=== PATIENT | female | born 1990 | race Caucasian/White ===

== ENCOUNTER 2016-04-09 12:53 | Emergency (ER) | payer BC, OTHER ==
[~2016-04-09] VITALS: Ht 167.6 cm; Wt 95.0 kg
[2016-04-09 12:57] VITALS: Ht 167.6 cm; Wt 95.0 kg
[2016-04-09] MEDS ORDERED: HC1C30 TOP (14:48)
[2016-04-09] MEDS ORDERED: BEN25 PO (14:48)
[2016-04-09] MEDS ORDERED: PRED20TA PO (14:48)
--- NOTE | 2016-04-09 14:56 | ERD ---
ER Documentation Chief Complaint Date/Time DATE: 04/09/16 TIME: 14:50 Chief Complaint RASH ON BILATERIAL ARMS AND BACK STARTED 30 MIN AGO HPI Patient is a 26-year-old female who presents to the emergency department with a rash on her bilateral upper arms and upper back. Patient is a rash started 30 minutes ago. Patient was visiting her daughter here at [facility] when the rash started. She describes the rash to be itching in nature. She states the rash is erythematous. She states that she had ate a piece of bread prior to the rash starting. She denies any fever allergies. Patient denies any new creams, lotions, medications, environments, or pets. Patient denies any shortness of breath, chest pain, lip swelling, throat swelling, throat swelling difficulty breathing, loss of consciousness. ROS All systems reviewed and are negative except as per history of present illness. Medications Home Meds Active Scripts Hydrocortisone* Topical (Hydrocortisone* Topical) 1%-28.35 Gm Cream..g., 1 APPLIC TOP Q6 Y for ITCHING, #1 TUB Prov:SHEILA RUELAS PA-C 04/09/16 Diphenhydramine Hcl* (Benadryl*) 25 Mg Cap, 25 MG PO Q6, #20 CAP Prov:SHEILA RUELAS PA-C 04/09/16 Prednisone* (Prednisone*) 20 Mg Tab, 40 MG PO DAILY for 4 Days, TAB Prov:SHEILA RUELAS PA-C 04/09/16 Allergies Allergies: Coded Allergies: No Known Drug Allergy (Verified Allergy, Unknown, 07/06/11) PMhx/Soc History of Surgery: No Anesthesia Reaction: No Hx Neurological Disorder: No Hx Respiratory Disorders: No Hx Cardiac Disorders: No Hx Psychiatric Problems: No Hx Miscellaneous Medical Probl: No Hx Alcohol Use: No Hx Substance Use: No Hx Tobacco Use: No FmHx Family History: No diabetes Physical Exam Vitals Vital Signs Date Time Temp Pulse Resp B/P Pulse Ox O2 Delivery O2 Flow Rate FiO2 04/09/16 12:57 98.2 60 18 127/61 98 Physical Exam GENERAL: Well-developed, well-nourished female. Appears in no acute distress. Speaking in full sentences HEAD: Normocephalic, atraumatic. No deformities or ecchymosis. EYE: Pupils equal, round, and reactive to light. EOMs intact. No conjunctival erythema. No scleral icterus. No eye discharge. ENT: External ear without any masses or tenderness. Auditory canals clear bilaterally. TM visualized bilaterally, non-erythematous, non-bulging. Nasal mucosa pink with no discharge. Oropharynx is pink without any tonsillar erythema or exudates. No uvula deviation. No kissing tonsils. No lip swelling. No tongue swelling. No tonsillar swelling. NECK: Supple. No lymphadenopathy or thyromegaly. No meningismus. No JVD. No bruits. Trachea midline. LUNG: Clear to auscultation bilaterally. No rhonchi, wheezing, rales or coarse breath sounds. No signs of acute respiratory distress. No abdominal retractions , no nasal flaring. HEART: Regular rate and rhythm. No murmurs, rubs or gallops. BACK: No midline tenderness. EXTREMITIES: Equal pulses bilaterally. No peripheral clubbing, cyanosis or edema. No unilateral leg swelling. NEUROLOGIC: Alert and oriented to person, place and time. Moving all four extremities. 5/5 strength in all extremities. Normal speech. Steady gait. Negative Brudzinski sign. Negative Kernig sign SKIN: Normal color. Warm and dry. Erythematous, urticarial-like rash noted on bilateral upper arms and upper back. No lymphatic streaking. No active bleeding or discharge. Procedures/MDM MEDICAL DECISION MAKING: This is a 26-year-old female who presents with a rash to her bilateral arms and back which started approximately 30 minutes ago. Vital signs were reviewed. Patient was afebrile. She was not hypoxic. No signs of acute respiratory distress. Skin exam revealed erythematous, urticarial-like rash noted on bilateral upper arms and back. Given these findings, the patients presentation is most consistent with urticarial rash secondary to allergic reaction. I have a much lower clinical concern for necrotizing fasciitis, sepsis, gangrene, Jaspreet-Miguel syndrome, toxic epidural necrolysis, abscess, cellulitis, herpes zoster, fungal infection, insect bite, impetigo, dermatitis. Low suspicion for anaphylaxis or acute respiratory distress. PRESCRIPTIONS: Prednisone Benadryl Hydrocortisone cream DISCHARGE: At this time, patient is stable for discharge and outpatient management. I have advised the patient to avoid any new products, creams or possible allergens. I have advised the patient to avoid scratching the lesions. I have instructed the patient to follow-up with his/her primary care physician in 1-2 days. If symptoms persist, patient may need to see a double cut sawyer for further examinations and testing. I have instructed the patient to promptly return to the ER at any time for any new or worsening symptoms including increased pain, fever, redness, swelling of the lips/tongue/throat, warmth, difficulty breathing or vomiting. The patient and/or family expressed understanding of and agreement with this plan. All questions were answered. Home care instructions were provided. Departure Diagnosis: Primary Impression: Rash Condition: Stable Patient Instructions: Self-Care for Skin Rashes, Hives Referrals: FAMILIA BUTT (PCP) Additional Instructions: Call your primary care doctor TOMORROW for an appointment during the next 1-2 days.See the doctor sooner or return here if your condition worsens before your appointment time. Return to the emergency department immediately for any new or worsening symptoms including shortness of breath, chest pain, increasing rash, tongue swelling, lip swelling, difficulty swallowing. SHEILA RUELAS PA-C Apr 09, 2016 14:56
== END 2016-04-09 14:50 | disposition home or self-care (01) ==
LOC: E/R 12:53
DX: R21 Rash and other nonspecific skin eruption (principal)
CPT/HCPCS: 99283

== ENCOUNTER 2017-04-03 21:37 | Outpatient (CLI) | END 2017-04-03 22:55 | disposition home or self-care (01) ==

== ENCOUNTER 2017-07-22 00:45 | Inpatient (IN) | END 2017-07-24 19:35 | disposition home or self-care (01) | DRG 775 ==

== ENCOUNTER 2018-08-31 19:19 | Inpatient (IN) | payer MEDICAID, OTHER ==
[~2018-08-31] VITALS: Ht 166.4 cm; Wt 101.2 kg
[~2018-08-31 19:19] MED LIST: PREN-17 PO
--- NOTE | 2018-08-31 22:03 | HP ---
Date/Time of Note Date/Time of Note DATE: 08/31/18 TIME: 21:51 OB - History Hx of Present Free Text/Dictation Patient is a 28-year-old 6 para 4 who has received partial care and unsure of her due date but based on her last menstrual period December 26, 2017 she should be at 35 weeks and 3 days of gestation with estimated date of delivery October 02, 2018 Although ultrasound done here today puts her at 31 weeks and 2 days of gestation with estimated date of delivery October 31, 2018 She has received some care in [place] which she has been told of 3 different due dates of either August or September or October Patient reports positive movement, denies vaginal bleeding, denies leaking fluid or uterine contractions Past obstetrical history significant for x5 delivery x3 including of demise at 32 weeks of gestation GBS status is unknown Estimated Due Date: Oct 31, 2018 : 6 Para: 4 Care: Limited Care Obstetrical Complications: Other (History of deliveries and history of demise at 32 weeks of gestation) Other Concerns: History of deliveries and history of demise at 32 weeks of gestation OB Admission Exam Physical Exam HEENT: WNL Heart: Rhythm Normal Lungs: Clear, Equal Abdomen: WNL Extremities: Normal Reflexes: Normal Cervical Dilatation: None Membranes: Intact Heart Rate: 140's Accelerations: Accelerations Present Decelerations: No Decelerations Contractions on Admission: None Last 72 hours Lab Results PROCEDURE: US OB biophysical profile. CLINICAL INDICATION: decreased movements, pain TECHNIQUE: Multiple sonographic images of the pelvis were obtained. The images were reviewed on a PACS workstation. COMPARISON: No prior studies are available for comparison. FINDINGS: There is a single live intrauterine gestation. Cardiac activity is present with 144 beats per minute. There is a breech oblique right presentation. The placenta is posterior. There is no evidence of placental abruption. RAY = 10.2 cm. Biophysical profile: movement 2/2 tone 2/2. breathing 2/2 RAY 2/2 Total 10/30 RPTAT: AA . IMPRESSION: Normal biophysical profile. Presentation has changed since the prior study. . .Alec Powell MD, MD Date Time Electronically viewed and signed by .Alec Powell MD, MD on 08/31/2018 21:10 .S/ CC: SIMEON PELLETIER MD [phone] PROCEDURE: US OB. CLINICAL INDICATION: Size and dates TECHNIQUE: Multiple sonographic images of the pelvis and gravid uterus were obtained. The images were reviewed on a PACS workstation. COMPARISON: No prior studies are available for comparison. FINDINGS: Gestation: Single live intrauterine gestation. Cardiac activity: 144 beats per minute. Presentation: Transverse maternal right Placenta: Location: Posterior Appearance: No previa or abruption. Measurements: BPD = 7.8 cm, 31 weeks and 1 day HC = 28.4 cm, 31 weeks and 1 day AC = 27.3 cm, 31 weeks and 3 days FL = 6.0 cm, 31 weeks and 2 days Gestational Age: AUA estimated gestational age: 31 weeks 2 days LMP estimated gestational age: 40 weeks 1 day AUA estimated date of delivery: 10/31/18 The EFW = 1745 g, <3%ile based on LMP age. RPTAT: AA IMPRESSION: Single live intrauterine gestation of 31 weeks 2 days by ultrasound criteria. .Alec Powell MD, MD Date Time Electronically viewed and signed by .Alec Powell MD, MD on 08/31/2018 21:11 .S/ CC: SIMEON PELLETIER MD [phone] OB Assessment/Plan Reason for admission: other (Possible IUGR) Other plan: 31 weeks and 2 days of gestation with estimated weight less than 3 percentile suggestive of IUGR Admit to antepartum We will obtain all records available to determine whether the baby is IUGR- If IUGR is confirmed we will obtain perinatology consultation SIMEON PELLETIER MD Aug 31, 2018 22:02
[2018-08-31] MEDS ORDERED: AL HYDROX/MG HYDROX/SIMETH 30 ML CUP PO PRN (23:30)
[2018-08-31] MEDS ORDERED: ACETAMINOPHEN 325 MG TAB PO PRN (23:30)
--- NOTE | 2018-09-01 02:02 | TRIAGE ---
OB Triage Datetime Report Generated by CPN: 09/01/2018 02:02 Datetime: 08/31/2018 23:36 Stage of : Antepartum Assessment Type: Admission Assessment Maternal Assessment Level of Consciousness: Fully Conscious DTR's/Clonus: DTRs 2+; No Clonus Headache: Denies Blurred Vision: No Respiratory Effort: Unlabored; Regular Rhythm; Equal Expansion Breath Sounds, Left: Clear and Equal Breath Sounds, Right: Clear and Equal Nausea/Vomiting: Denies RUQ Epigastric Pain: Denies Facial Edema: None Temperature Route: Oral Fall Risk Assessment History of Falling: (0) No Secondary Diagnosis: (0) No Ambulatory Aid: (0) Bedrest/Nurse Assist IV Therapy: (0) No Gait: (0) Normal/Bedrest/Immobile Mental Status: (0) Oriented to Own Ability Fall Score: 0 Fall Risk Score Definition: No Risk: No action required Datetime: 08/31/2018 22:38 Time of Arrival: 08/31/2018 22:38 EGA: 40.1 Arrived By: Ambulatory Arrived From: Home Chief Complaint: L4 w/ hx ptd x4 to triage c/o occas ucs and FITZGERALD. States EDC 08/30 but EDC has bee n changed several times through , early PNC at [facility] and care since May in [place]. Stat es worried if baby is ok since postdates and came for IOL Movement: Present Contractions: Occasional Rupture of Membranes: Denies Vaginal Bleeding: None Vaginal Discharge: Denies Recent Sexual Intercouse: Denies Abdominal Trauma: Not Applicable Patient Complaints: Cramping Time Provider Notified: 08/31/2018 19:40 Provider Notified: Dr Varma Initial Plan: EFM,UA,DRUG SCREEN,EFW,BPP Datetime: 08/31/2018 22:10 Stage of : OB Triage Stage of : Antepartum Maternal Assessment Level of Consciousness: Fully Conscious Headache: Temporal Nausea/Vomiting: Denies RUQ Epigastric Pain: Denies Labor Evaluation Monitor Mode: External Resting Tone [place]: Relaxed Heart Rate FHR Baseline Rate: 145 Monitor Mode: External US Pain Assessment Pain Scale: 5 Pain Presence: Intermittent Pain Type: Cramping Pain Location: Abdomen Datetime: 08/31/2018 19:24 Stage of : OB Triage Maternal Assessment Level of Consciousness: Fully Conscious Headache: Temporal Blurred Vision: No Nausea/Vomiting: Denies RUQ Epigastric Pain: Denies Facial Edema: None Labor Evaluation Monitor Mode: External Resting Tone [place]: Relaxed Heart Rate FHR Baseline Rate: 145 Monitor Mode: External US Pain Assessment Pain Scale: 5 Pain Presence: Intermittent Pain Type: Cramping Pain Location: Abdomen
[2018-09-01] MEDS ORDERED: PRENATAL VITAMIN PO SCH (09:00)
--- NOTE | 2018-09-01 14:40 | DS ---
Date/Time of Note Date/Time of Note DATE: 09/01/18 TIME: 14:37 Obstetrical Discharge Record Final Diagnosis Final Diagnosis: not delivered Other Final Diagnosis Patient is 6 para 4 with single viable with gestational age of approximately 31 weeks 0 days based on ultrasound measurements. The estimated date of delivery is 11/03/2018. Baby is measuring in 45th percentile AMENDMENT: 09/01/2018 11:47:02 AM Aaron Woodall M.d Fetus is in 45%ile of weight by ultrasound measurements, within normal limits. PROCEDURE: US OB. CLINICAL INDICATION: Size and dates TECHNIQUE: Multiple sonographic images of the pelvis and gravid uterus were obtained. The images were reviewed on a PACS workstation. COMPARISON: US PELVIS 08/31/2018 FINDINGS: There is a single viable intrauterine gestation. There is a breech presentation. The placenta is posterior. There is no evidence for an abruption or placenta previa. Measurements were made in order to determine age. The results are as follows: BPD = 7.67 cm HC = 28.46 cm AC = 28.01 cm FL = 5.71 cm EFW = 1726 g HR= 146 bpm IMPRESSION: Single viable with gestational age of approximately 31 weeks 0 days based on ultrasound measurements. The estimated date of delivery is 11/03/2018. Stable orientation. RPTAT: [facility] Physician Jabier Date Time Electronically viewed and signed by Physician Jabier on 09/01/2018 14:48 ME/ CC: SIMEON PELLETIER MD [phone] Patient indicated some elevated blood pressures earlier in the She was given instructions for 24-hour urine protein collection Patient was given instructions to return in 48 hours for repeat NST and BPP Condition on Discharge Physical Assessment Voiding: Yes Bowel Movement: Yes Breast: Soft, non-tender Fundus: Other (Gravid) Calf Tenderness: No Patient Condition: Good SIMEON PELLETIER MD Sep 01, 2018 14:40
== END 2018-09-01 16:05 | disposition home or self-care (01) | DRG 833 ==
LOC: OBT 19:19 → L-D 19:21 → OBT 21:50
PROVIDERS: ADMIT Obstetrics & Gynecology Gynecology; ATTEND Obstetrics & Gynecology Gynecology
DX: O47.03 False labor before 37 completed weeks of gestation, third trimester (principal); Z3A.35 35 weeks gestation of pregnancy
CPT/HCPCS: 76815; 76816; 76818; 80053; 80307; 81001; 84560; 85025; G0463

== ENCOUNTER 2018-09-04 13:33 | Outpatient (CLI) | payer SELFPAY ==
[~2018-09-04] VITALS: Ht 167.6 cm; Wt 102.7 kg
[2018-09-04 14:33] VITALS: Ht 167.6 cm; Wt 102.7 kg
[2018-09-04 14:34] VITALS: BP 105/59; PULSE 71; RESP 19
--- NOTE | 2018-09-04 16:57 | TRIAGE ---
OB Triage Datetime Report Generated by CPN: 09/04/2018 16:57 Datetime: 09/04/2018 16:00 Labor Evaluation Frequency: 0 Monitor Mode: External Pattern: Normal: <= 5 Contractions in 10 Minutes Resting Tone [place]: Relaxed Heart Rate FHR Baseline Rate: 150 Monitor Mode: External US FHR Baseline Changes: No Baseline Change Variability: Moderate 6-25 bpm Accelerations: 15X15 Decelerations: None Category: Category I Datetime: 09/04/2018 14:30 Stage of : OB Triage Assessment Type: Triage Maternal Assessment Level of Consciousness: Keenly Alert, Responsive DTR's/Clonus: DTRs 2+; No Clonus Headache: Denies Blurred Vision: No Respiratory Effort: Unlabored; Regular Rhythm; Equal Expansion Breath Sounds, Left: Clear and Equal Breath Sounds, Right: Clear and Equal Nausea/Vomiting: Denies RUQ Epigastric Pain: Denies Lower Extremities Edema: None Degree: None Upper Extremities Edema: None Degree: None Facial Edema: None Fall Risk Assessment History of Falling: (0) No Secondary Diagnosis: (0) No Ambulatory Aid: (0) Bedrest/Nurse Assist IV Therapy: (0) No Gait: (0) Normal/Bedrest/Immobile Mental Status: (0) Oriented to Own Ability Fall Score: 0 Fall Risk Score Definition: No Risk: No action required Datetime: 09/04/2018 14:29 Time of Arrival: 09/04/2018 13:30 EGA: 31.2 Arrived By: Ambulatory Arrived From: Home Chief Complaint: NST Movement: Present Contractions: Denies/Absent Rupture of Membranes: Denies Vaginal Bleeding: None Vaginal Discharge: Denies Recent Sexual Intercouse: Denies Abdominal Trauma: Not Applicable Patient Complaints: Other Time Provider Notified: 09/04/2018 16:09 Provider Notified: dr levine Initial Plan: BPP Datetime: 09/01/2018 15:43 Labor Evaluation Frequency: none Monitor Mode: External Resting Tone [place]: Relaxed Heart Rate FHR Baseline Rate: 140 Monitor Mode: External US FHR Baseline Changes: No Baseline Change Variability: Moderate 6-25 bpm Accelerations: 15X15 Decelerations: None Pain Assessment Pain Scale: 0 Pain Presence: None/Denies Pain Type: N/A Datetime: 09/01/2018 15:00 Labor Evaluation Frequency: NONE Monitor Mode: External Quality: Mild Resting Tone [place]: Relaxed Heart Rate FHR Baseline Rate: 140 Monitor Mode: External US FHR Baseline Changes: No Baseline Change Variability: Moderate 6-25 bpm Accelerations: 15X15 Decelerations: None Datetime: 09/01/2018 14:00 Labor Evaluation Frequency: NONE Monitor Mode: External Resting Tone [place]: Relaxed Datetime: 09/01/2018 13:59 Heart Rate FHR Baseline Rate: 140 Monitor Mode: External US FHR Baseline Changes: No Baseline Change Variability: Moderate 6-25 bpm Accelerations: 15X15 Decelerations: None Datetime: 09/01/2018 13:00 Labor Evaluation Frequency: NONE Monitor Mode: External Resting Tone [place]: Relaxed Heart Rate FHR Baseline Rate: 140 Monitor Mode: External US FHR Baseline Changes: No Baseline Change Variability: Moderate 6-25 bpm Accelerations: 15X15 Decelerations: None Datetime: 09/01/2018 12:00 Labor Evaluation Frequency: X1 Monitor Mode: External Duration (sec)2399: 40 Quality: Mild Resting Tone [place]: Relaxed Heart Rate FHR Baseline Rate: 135 Monitor Mode: External US FHR Baseline Changes: No Baseline Change Variability: Moderate 6-25 bpm Accelerations: 15X15 Decelerations: None Datetime: 09/01/2018 11:00 Labor Evaluation Frequency: irritability Monitor Mode: External Resting Tone [place]: Relaxed Heart Rate FHR Baseline Rate: 140 Monitor Mode: External US FHR Baseline Changes: No Baseline Change Variability: Moderate 6-25 bpm Accelerations: 15X15 Decelerations: Variable Datetime: 09/01/2018 10:00 Labor Evaluation Frequency: x1 Monitor Mode: External Duration (sec)2399: 50 Quality: Mild Pattern: Normal: <= 5 Contractions in 10 Minutes Resting Tone [place]: Relaxed Heart Rate FHR Baseline Rate: 135 Monitor Mode: External US FHR Baseline Changes: No Baseline Change Variability: Moderate 6-25 bpm Accelerations: 15X15 Decelerations: None Datetime: 09/01/2018 09:00 Assessment Type: Ongoing Assessment Maternal Assessment Level of Consciousness: Fully Conscious DTR's/Clonus: DTRs 2+; No Clonus Headache: Denies Blurred Vision: No Respiratory Effort: Unlabored; Regular Rhythm Breath Sounds, Left: Clear and Equal Breath Sounds, Right: Clear and Equal Nausea/Vomiting: Denies RUQ Epigastric Pain: Denies Lower Extremities Edema: None Degree: None Upper Extremities Edema: None Degree: None Facial Edema: None Fall Risk Assessment History of Falling: (0) No Secondary Diagnosis: (0) No Ambulatory Aid: (0) Bedrest/Nurse Assist IV Therapy: (0) No Gait: (0) Normal/Bedrest/Immobile Mental Status: (0) Oriented to Own Ability Fall Score: 0 Fall Risk Score Definition: No Risk: No action required Labor Evaluation Frequency: none Monitor Mode: External Pattern: Normal: <= 5 Contractions in 10 Minutes Resting Tone [place]: Relaxed Heart Rate FHR Baseline Rate: 135 Monitor Mode: External US FHR Baseline Changes: No Baseline Change Variability: Moderate 6-25 bpm Accelerations: 15X15 Decelerations: None Datetime: 09/01/2018 08:00 Labor Evaluation Frequency: none Monitor Mode: External Pattern: Normal: <= 5 Contractions in 10 Minutes Resting Tone [place]: Relaxed Heart Rate FHR Baseline Rate: 135 Monitor Mode: External US FHR Baseline Changes: No Baseline Change Variability: Moderate 6-25 bpm Accelerations: 10X10 Decelerations: None Datetime: 09/01/2018 07:25 Stage of : Antepartum Datetime: 09/01/2018 06:36 Stage of : Antepartum Maternal Assessment Level of Consciousness: Fully Conscious Labor Evaluation Frequency: 0 Monitor Mode: External Pattern: Normal: <= 5 Contractions in 10 Minutes Resting Tone [place]: Relaxed Heart Rate FHR Baseline Rate: 135 Monitor Mode: External US FHR Baseline Changes: No Baseline Change Variability: Moderate 6-25 bpm Accelerations: 15X15 Decelerations: None Pain Assessment Pain Scale: 0 Pain Goal: 0 Datetime: 09/01/2018 05:36 Stage of : Antepartum Maternal Assessment Level of Consciousness: Fully Conscious Labor Evaluation Frequency: 0 Monitor Mode: External Pattern: Normal: <= 5 Contractions in 10 Minutes Resting Tone [place]: Relaxed Heart Rate FHR Baseline Rate: 135 Monitor Mode: External US FHR Baseline Changes: No Baseline Change Variability: Moderate 6-25 bpm Accelerations: 15X15 Decelerations: None Pain Assessment Pain Scale: 0 Pain Goal: 0 Datetime: 09/01/2018 04:52 Stage of : Antepartum Maternal Assessment Level of Consciousness: Fully Conscious Temperature Route: Oral Labor Evaluation Frequency: 0 Monitor Mode: External Pattern: Normal: <= 5 Contractions in 10 Minutes Resting Tone [place]: Relaxed Heart Rate FHR Baseline Rate: 140 Monitor Mode: External US FHR Baseline Changes: No Baseline Change Variability: Moderate 6-25 bpm Accelerations: 15X15 Decelerations: None Pain Assessment Pain Scale: 0 Pain Goal: 0 Datetime: 09/01/2018 03:36 Stage of : Antepartum Maternal Assessment Level of Consciousness: Fully Conscious Labor Evaluation Frequency: 0 Monitor Mode: External Pattern: Normal: <= 5 Contractions in 10 Minutes Resting Tone [place]: Relaxed Heart Rate FHR Baseline Rate: 140 Monitor Mode: External US FHR Baseline Changes: No Baseline Change Variability: Moderate 6-25 bpm Accelerations: 15X15 Decelerations: None Pain Assessment Pain Scale: 0 Pain Goal: 0 Datetime: 09/01/2018 02:36 Stage of : Antepartum Maternal Assessment Level of Consciousness: Fully Conscious Labor Evaluation Frequency: 0 Monitor Mode: External Pattern: Normal: <= 5 Contractions in 10 Minutes Resting Tone [place]: Relaxed Heart Rate FHR Baseline Rate: 140 Monitor Mode: External US FHR Baseline Changes: No Baseline Change Variability: Moderate 6-25 bpm Accelerations: 15X15 Decelerations: None Pain Assessment Pain Scale: 0 Pain Goal: 0 Datetime: 09/01/2018 01:36 Stage of : Antepartum Maternal Assessment Level of Consciousness: Fully Conscious Labor Evaluation Frequency: 0 Monitor Mode: External Pattern: Normal: <= 5 Contractions in 10 Minutes Resting Tone [place]: Relaxed Contraction Comments: Pt sleeping, no signs of UC's Heart Rate FHR Baseline Rate: 140 Monitor Mode: External US FHR Baseline Changes: No Baseline Change Variability: Moderate 6-25 bpm Accelerations: 15X15 Decelerations: None Pain Assessment Pain Scale: 0 Pain Goal: 0 Datetime: 09/01/2018 01:14 EGA: 30.5 Arrived By: Ambulatory Datetime: 09/01/2018 00:36 Stage of : Antepartum Maternal Assessment Level of Consciousness: Fully Conscious Labor Evaluation Frequency: 0 Monitor Mode: External Pattern: Normal: <= 5 Contractions in 10 Minutes Resting Tone [place]: Relaxed Heart Rate FHR Baseline Rate: 140 Monitor Mode: External US FHR Baseline Changes: No Baseline Change Variability: Moderate 6-25 bpm Accelerations: 15X15 Decelerations: None Pain Assessment Pain Scale: 0 Pain Goal: 0 Datetime: 09/01/2018 00:05 Stage of : Antepartum Datetime: 08/31/2018 23:36 Fall Score: 0 Fall Risk Score Definition: No Risk: No action required Labor Evaluation Frequency: 0 Monitor Mode: External Pattern: Normal: <= 5 Contractions in 10 Minutes Resting Tone [place]: Relaxed Heart Rate FHR Baseline Rate: 140 Monitor Mode: External US FHR Baseline Changes: No Baseline Change Variability: Moderate 6-25 bpm Accelerations: 15X15 Decelerations: None Datetime: 08/31/2018 22:32 Quality: Mild Pattern: Normal: <= 5 Contractions in 10 Minutes Resting Tone [place]: Relaxed Heart Rate FHR Baseline Rate: 140 Monitor Mode: External US FHR Baseline Changes: No Baseline Change Variability: Moderate 6-25 bpm Accelerations: 15X15 Decelerations: None Category: Category I Datetime: 08/31/2018 22:10 FHR Baseline Changes: No Baseline Change Variability: Moderate 6-25 bpm Accelerations: 15X15 Decelerations: None Category: Category I Datetime: 08/31/2018 21:50 Stage of : OB Triage Maternal Assessment Level of Consciousness: Fully Conscious DTR's/Clonus: DTRs 2+; No Clonus Headache: Denies Blurred Vision: No Nausea/Vomiting: Denies Facial Edema: None Monitor Mode: External Quality: Mild Pattern: Normal: <= 5 Contractions in 10 Minutes Resting Tone [place]: Relaxed Heart Rate FHR Baseline Rate: 140 Monitor Mode: External US FHR Baseline Changes: No Baseline Change Variability: Moderate 6-25 bpm Accelerations: 15X15 Decelerations: None Category: Category I Pain Assessment Pain Scale: 0 Pain Presence: None/Denies Pain Type: N/A Datetime: 08/31/2018 21:05 Monitor Mode: External Resting Tone [place]: Relaxed Heart Rate FHR Baseline Rate: 140 Monitor Mode: External US Datetime: 08/31/2018 20:40 Stage of : OB Triage Heart Rate FHR Baseline Rate: 150 Monitor Mode: External US FHR Baseline Changes: No Baseline Change Variability: Moderate 6-25 bpm Accelerations: 15X15 Comments: Baby audibly extremely active Datetime: 08/31/2018 19:41 Stage of : OB Triage
--- NOTE | 2018-09-04 18:03 | PN ---
Triage Information Date/Time 01/04/2019 Reason for visit: IUGR Weeks of Gestation 31 weeks and 2 days /Para Diabetes: none Hypertention: none Additional information 28-year-old G6, P5 with IUP at 31 weeks and 2 days and care with: Care clinic presented for testing due to concern for possible IUGR. Patient Had care in different clinics. Per her stated to date her ultrasound showed estimated weight less than 3% however after reviewing her prior records noted that her due date is actually by 23 weeks not consistent with LMP. That appears to correlate with phase patient's gestational age today. Rest of the records are not available. Patient has a appointment in the clinic next week to be seen by a new provider and that will be discussed in case of IUGR will be referred to perinatologist. She denies any complaint today. Denies any leaking of fluid, vaginal bleeding decreased movement or contractions. She is here for NST/BPP. Objective Vital Signs Date Temp Pulse Resp B/P (MAP) Pulse Ox O2 O2 Flow FiO2 Time Delivery Rate 09/04/18 98.1 71 19 105/59 Room Air 14:34 (74) Heart Rate Comments Appropriate for gestational age and category 1 Contractions: None Exam General appearance: Alert and oriented x4 does not appear to be in any acute distress Abdomen: Soft, gravid, fundal height consider gestational age BPP: 10/30 NST: Category 1 Results/Medications Results 24 hrs Laboratory Tests Test 09/04/18 14:00 09/04/18 14:20 Urine Random Creatinine 65.09 Urine Collection Duration 24 Urine Total Volume 24 Hours 2200 Urine Creatinine Timed 24 Creatinine Clearance 198.9 H Urine Total Volume (Protein) 2200 Urine Total Protein 24 Hour 352.0 H Urine Color YELLOW Urine Clarity SLIGHTLY CLOUDY A Urine pH 6.0 Urine Specific [place] 1.020 Urine Ketones NEGATIVE Urine Nitrite NEGATIVE Urine Bilirubin NEGATIVE Urine Urobilinogen NEGATIVE Urine Leukocyte Esterase NEGATIVE Urine Microscopic RBC 0 Urine Microscopic WBC 5 Urine Squamous Epithelial Cells FEW Urine Mucus MANY A Urine Hemoglobin NEGATIVE Urine Glucose NEGATIVE Urine Total Protein NEGATIVE Imaging Results PROCEDURE: US OB biophysical profile. CLINICAL INDICATION: decreased movements, TECHNIQUE: Multiple sonographic images of the pelvis were obtained. The images were reviewed on a PACS workstation. COMPARISON: US PELVIS 08/31/2018 FINDINGS: There is a single live intrauterine gestation. Cardiac activity is present with 146 beats per minute. There is a vertex presentation. The placenta is posterior fundal. There is no evidence of placental abruption. RAY = 15.9 cm. Biophysical profile: movement 2/2 tone 2/2. breathing 2/2 RAY 2/2 Total 10/30 RPTAT: AA . IMPRESSION: Normal biophysical profile. Disposition: Discharge Assessment/Plan IUP at 31 weeks and 2 day Rule out IUGR. Discrepancy in dating due to care in different clinics testing reassuring No acute problem at this point Patient can be discharged home with a follow-up in 2 days again with triage with NST/BPP and continue these until next week that she will have her appointment with a provider in clinic in clinic to review again her dating and possible referral to perinatologist Strict labor precautions kick count discussed with patient Patient verbalized understanding. All questions answered to patient with satisfaction She understands importance of this follow-up. Had a history of delivery in the past as well as history of stillbirth. It was discussed with the patient importance of close follow-up with the hospital and with OB clinic in order to prevent any complications. All questions were answered. JONNIE BALDWIN MD Sep 04, 2018 18:03
== END 2018-09-04 16:20 | disposition home or self-care (01) ==
LOC: OBT 13:33 → L-D 13:35 → OBT 16:20
PROVIDERS: ATTEND Obstetrics & Gynecology
DX: O36.5930 Maternal care for other known or suspected poor fetal growth, third trimester, not applicable or unspecified (principal); Z3A.31 31 weeks gestation of pregnancy
CPT/HCPCS: 76818; 81001; 82575; 84156; G0463; 81003

== ENCOUNTER 2018-09-06 11:10 | Outpatient (CLI) | payer SELFPAY ==
[~2018-09-06] VITALS: Ht 167.6 cm; Wt 102.6 kg
[2018-09-06 11:13] VITALS: Ht 167.6 cm; Wt 102.6 kg
--- NOTE | 2018-09-06 13:46 | TRIAGE ---
OB Triage Datetime Report Generated by CPN: 09/06/2018 13:46 Datetime: 09/06/2018 13:13 Maternal Assessment Level of Consciousness: Keenly Alert, Responsive DTR's/Clonus: DTRs 2+ Headache: Denies Blurred Vision: No Nausea/Vomiting: Denies RUQ Epigastric Pain: Denies Facial Edema: None Labor Evaluation Frequency: NONE Pattern: Normal: <= 5 Contractions in 10 Minutes Resting Tone [place]: Relaxed Heart Rate FHR Baseline Rate: 135 Monitor Mode: External US FHR Baseline Changes: No Baseline Change Variability: Moderate 6-25 bpm Accelerations: 15X15 Decelerations: None Category: Category I Pain Assessment Pain Scale: 0 Pain Presence: None/Denies Pain Type: N/A Pain Goal: 0 Vaginal Exam Membrane Status: Intact Datetime: 09/06/2018 11:23 Maternal Assessment Level of Consciousness: Keenly Alert, Responsive DTR's/Clonus: DTRs 2+ Headache: Denies Blurred Vision: No Nausea/Vomiting: Denies RUQ Epigastric Pain: Denies Facial Edema: None Labor Evaluation Frequency: MILD IRREG Monitor Mode: External Quality: Mild Pattern: Normal: <= 5 Contractions in 10 Minutes Resting Tone [place]: Relaxed Heart Rate FHR Baseline Rate: 145 Monitor Mode: External US FHR Baseline Changes: No Baseline Change Variability: Moderate 6-25 bpm Accelerations: 15X15 Decelerations: None Category: Category I Pain Assessment Pain Scale: 0 Pain Presence: None/Denies Pain Goal: 0 Pain Assessment Comments: DR BALDWIN AT BEDSIDE STRIP REVIEWED BY SAME ORDERS GIVEN AND FOLLOW ED Vaginal Exam Membrane Status: Intact Datetime: 09/06/2018 11:06 Time of Arrival: 09/06/2018 10:50 EGA: 31.4 Arrived By: Ambulatory Arrived From: Home Chief Complaint: DUE DATE DESCREPANCY Movement: Present Contractions: Denies/Absent Rupture of Membranes: Denies Vaginal Discharge: Denies Recent Sexual Intercouse: Denies Abdominal Trauma: Not Applicable Patient Complaints: Other Provider Notified: DR BALDWIN Initial Plan: EFM,ALL DR BALDWIN Datetime: 09/06/2018 11:05 Maternal Assessment Level of Consciousness: Keenly Alert, Responsive DTR's/Clonus: DTRs 2+; No Clonus Headache: Denies Blurred Vision: No Respiratory Effort: Unlabored; Regular Rhythm; Equal Expansion Breath Sounds, Left: Clear and Equal Breath Sounds, Right: Clear and Equal Nausea/Vomiting: Denies RUQ Epigastric Pain: Denies Facial Edema: None Temperature Route: Axillary Fall Risk Assessment History of Falling: (0) No Secondary Diagnosis: (0) No Ambulatory Aid: (0) Bedrest/Nurse Assist IV Therapy: (0) No Gait: (0) Normal/Bedrest/Immobile Mental Status: (0) Oriented to Own Ability Fall Score: 0 Fall Risk Score Definition: No Risk: No action required Datetime: 09/04/2018 14:30 Fall Score: 0 Fall Risk Score Definition: No Risk: No action required Datetime: 09/04/2018 14:29 EGA: 31.2 Datetime: 09/01/2018 09:00 Fall Score: 0 Fall Risk Score Definition: No Risk: No action required Datetime: 09/01/2018 01:14 EGA: 30.5 Datetime: 08/31/2018 23:36 Fall Score: 0 Fall Risk Score Definition: No Risk: No action required
--- NOTE | 2018-09-06 13:54 | TRIAGE ---
OB Triage Datetime Report Generated by CPN: 09/06/2018 13:54 Datetime: 09/06/2018 11:06 Vaginal Bleeding: None Time Provider Notified: 09/06/2018 11:30
--- NOTE | 2018-09-06 17:22 | PN ---
Triage Information Date/Time September 06, 2018 Reason for visit: Weeks of Gestation 31 weeks and 4 days /Para 6 para 5 Diabetes: none Hypertention: none Additional information 28-year-old with IUP at 31 weeks and 4 days here today for NST/BPP due to concern for possible IUGR. Patient had care in different clinics. Records from her initial earlier care was not available. Her dating was based on 23 to 24 weeks ultrasound. She was noted to be less than 3 percentile in growth ultrasound based on initial stated to date. Patient has a follow-up appointment with perinatologist next clinic week. She denies any leaking of fluid, decreased movement or contractions. She denies any complaint. She is here today for testing. Objective Heart Rate: 130's Heart Rate Comments Category 1 Results/Medications Imaging Results PROCEDURE: US biophysical profile. CLINICAL INDICATION: well-being. TECHNIQUE: Multiple sonographic images of the uterus were obtained. The images were reviewed on a PACS workstation. COMPARISON: US PELVIS 09/04/2018 FINDINGS: There is a single live intrauterine gestation. heart rate is 152 beats per minute. The position is breech. The placenta is posterior, grade 2. The RAY is 19.6 cm. Breathing Movement: 2 Gross Body Movement: 2 Tone: 2 Qualitative Amniotic Fluid Volume: 2 TOTAL: 8 IMPRESSION: 1. Single viable intrauterine gestation. 2. Biophysical profile = 8/8. 3. RAY = 19.6 cm. 4. The presentation is breech. RPTAT: HH Disposition: Discharge Assessment/Plan IUP at 31 weeks and 4 days Suspected IUGR/cannot rule out IUGR Unreliable dating testing reassuring strict labor precautions and kick co unts and follow-up with triage in 3 days for NST/BPP and follow-up next week with perinatologist office For growth ultrasound possible Doppler and reevaluation for her final due date and rule out IUGR discussed with the patient Patient verbalized understanding. All questions were answered to patient with satisfaction and patient agreed to comply with instruction and verbalized und erstanding of the importance of following up above instructions to prevent of complications of including significant mortality and morbidity. Patient discharged home in stable condition Follow-up for NST/BPP in 2 to 3 days JONNIE BALDWIN MD Sep 06, 2018 17:22
== END 2018-09-06 14:08 | disposition home or self-care (01) ==
LOC: L-D 11:10 → OBT 11:10
PROVIDERS: ATTEND Obstetrics & Gynecology
DX: O36.8330 Maternal care for abnormalities of the fetal heart rate or rhythm, third trimester, not applicable or unspecified (principal); Z3A.31 31 weeks gestation of pregnancy
CPT/HCPCS: 76818; G0463

== ENCOUNTER 2018-09-08 15:26 | Outpatient (CLI) | payer SELFPAY ==
[~2018-09-08] VITALS: Ht 167.6 cm; Wt 102.0 kg
[2018-09-08 15:38] VITALS: BP 103/58; PULSE 92; RESP 18
[2018-09-08] MEDS ORDERED: FERR256T PO (15:40)
--- NOTE | 2018-09-08 17:32 | PN ---
Triage Information Date/Time Reason for visit: Patient with polyhydramnios here for NST and BPP Weeks of Gestation 28-year-old 6 para 5 at 32 weeks of gestation with estimated date of delivery November 03, 2018 Patient sent for NST and BPP Patient reports positive movement, denies vaginal bleeding and leaking fluid, denies uterine contractions /Para 6 para 5 Diabetes: none Hypertention: none Objective Vital Signs Date Temp Pulse Resp B/P (MAP) Pulse Ox O2 O2 Flow FiO2 Time Delivery Rate 09/08/18 98.5 92 18 103/58 97 Room Air 15:38 (73) Heart Rate: 140's Heart Rate Comments heart rate tracing had very 1 Contractions: None Results/Medications Imaging Results PROCEDURE: OB ultrasound CLINICAL INDICATION: IUGR TECHNIQUE: Multiple transverse and longitudinal OB images of the pelvis were obtained. The images were reviewed on a high-resolution PACS workstation. COMPARISON: 09/06/2018 FINDINGS: A single live intrauterine is seen. The presentation is vertex. The placenta is left fundal in location. No evidence of placenta abruption or previa is seen. The heart rate is 146 beats per minute. The amniotic fluid index is 23.8 cm. movement 2 tone 2 breathing 2 Amniotic fluid 2 IMPRESSION: Biophysical profile of 10/30. RPTAT: HPNM Physician Piyush Date Time Electronically viewed and signed by Physician Piyush on 09/08/2018 16:47 / CC: JOJO PAZ [id number] Disposition: Discharge Assessment/Plan Patient has polyhydramnios kick count instructions were given Labor precautions were given Patient instructed to follow-up with [facility] in 1 to 2 days Patient instructed to return in 48 hours for repeat NST and BPP SIMEON PELLETIER MD Sep 08, 2018 17:32
== END 2018-09-08 17:27 | disposition home or self-care (01) ==
LOC: OBT 15:26 → L-D 15:27 → OBT 17:27
PROVIDERS: ATTEND Obstetrics & Gynecology
DX: O40.3XX0 Polyhydramnios, third trimester, not applicable or unspecified (principal); O36.8330 Maternal care for abnormalities of the fetal heart rate or rhythm, third trimester, not applicable or unspecified; Z3A.32 32 weeks gestation of pregnancy
CPT/HCPCS: 76818; G0463

== ENCOUNTER 2018-09-29 17:15 | Outpatient (CLI) | payer MEDICAID ==
[~2018-09-29] VITALS: Ht 167.6 cm; Wt 102.7 kg
[~2018-09-29 17:15] MED LIST changes: +FERR256T PO
[2018-09-29 17:26] VITALS: Ht 167.6 cm; Wt 102.7 kg
--- NOTE | 2018-09-29 18:29 | PN ---
Triage Information Date/Time Subjective: in the third trimester presents with complaints of vaginal pressure for 2 weeks and leakage of fluid for 1 week. Objective: Vitals: 110/57 General: No apparent distress Abdomen: Gravid 37 cm SVE: ft/thick/high by RN Extremities: Nontender to palpation Electronic moniter: Category 1 140/mod sulma/+accels/no decels [place]: irregular Assessment/Plan: 1. Contractions-sve x 2. bpp pending 2. h/o PTD-advised on 17OHP but poor follow up 3. h/o stillbirth-labs pending for thrombophilia, hga1c, tsh, lupus anticoagulant and anticardiolipin 4. vaginal discharge-[place] 5. noncompliant-dating us pending. pending records from [facility] and/or primary ob 6. marijuana use Reason for visit: Abd/pelvic pain Weeks of Gestation third trimester /Para 7/4 MILESTONEWANG MD Sep 29, 2018 18:29
--- NOTE | 2018-09-29 22:15 | QN ---
Documentation Comment OB Triage note already written by Dr Turner. The pt's chart was reviewed and prior US from 09/01 and the pt's EDC appears to be 11/03, NOT in August or September. The nursing staff has obtained a record release and tomorrow will be working on getting her prior care records from [facility] as, apparently, the clinic has not done so here. She has had 2 visits at [facility] 05/23 and 07/17 and they were still using 09/29 as her due date. BPP 10/30 with an RAY of 22.4 EFW 2705 grams c/w 35w 3d which is c/w an EDC of 11/03. Placenta is posterior and baby is vertex. I explained the situation to the pt so she clearly understands and also that the date could change from 11/03 only if an early US from [facility] gives us a different date. Her next appt at [facility] is next week. ABIODUN IRAHETA MD Sep 29, 2018 22:14
--- NOTE | 2018-09-30 00:22 | TRIAGE ---
OB Triage Datetime Report Generated by CPN: 09/29/2018 23:10 Datetime: 09/29/2018 19:00 Time of Arrival: 09/29/2018 17:10 EGA: 35.0 Arrived By: Ambulatory Arrived From: Home Chief Complaint: w/ hx stillbirth,PTD, and incomplete PNC c/o vag pressure Movement: Present Contractions: Denies/Absent Rupture of Membranes: Denies Vaginal Bleeding: None Vaginal Discharge: Denies Recent Sexual Intercouse: Denies Abdominal Trauma: Not Applicable Patient Complaints: Other Time Provider Notified: 09/29/2018 18:09 Provider Notified: Milestone Initial Plan: NST,BPP,EFW,BLOOD WORK Datetime: 09/29/2018 18:46 Stage of : OB Triage Maternal Assessment Level of Consciousness: Keenly Alert, Responsive DTR's/Clonus: DTRs 1+ Headache: Denies Nausea/Vomiting: Denies RUQ Epigastric Pain: Denies Labor Evaluation Frequency: X1 Monitor Mode: External Duration (sec)2399: 60 Quality: Mild Pattern: Normal: <= 5 Contractions in 10 Minutes Resting Tone [place] 1: Relaxed Heart Rate FHR Baseline Rate: 135 Monitor Mode: External US Variability: Moderate 6-25 bpm Accelerations: 15X15 Decelerations: None Category: Category I Pain Assessment Pain Scale: 0 Pain Presence: None/Denies Pain Type: N/A Pain Goal: 3 Membrane Status: Intact Datetime: 09/29/2018 18:28 Maternal Assessment Level of Consciousness: Keenly Alert, Responsive DTR's/Clonus: DTRs 1+ Headache: Denies Blurred Vision: No Nausea/Vomiting: Denies RUQ Epigastric Pain: Denies Facial Edema: None Labor Evaluation Frequency: X1 Monitor Mode: External Duration (sec)2399: 60 Quality: Mild Pattern: Normal: <= 5 Contractions in 10 Minutes Resting Tone [place] 1: Relaxed Heart Rate FHR Baseline Rate: 135 Monitor Mode: External US Variability: Moderate 6-25 bpm Accelerations: 15X15 Decelerations: None Category: Category I Pain Assessment Pain Scale: 0 Pain Presence: None/Denies Pain Type: N/A Pain Goal: 3 Membrane Status: Intact Datetime: 09/29/2018 18:09 Vaginal Exam Dilatation (cms): 0.5 Effacement (%): 0 Station: -3 Exam By: EUGENIO MEDINA Vaginal Bleeding: None Cervix, Consistency: Soft Cervix, Position: Posterior Presentation 'A': Cephalic Datetime: 09/08/2018 15:50 Maternal Assessment Level of Consciousness: Keenly Alert, Responsive DTR's/Clonus: DTRs 1+ Headache: Denies Blurred Vision: No Nausea/Vomiting: Denies RUQ Epigastric Pain: Denies Facial Edema: None Labor Evaluation Frequency: NONE Monitor Mode: External Resting Tone [place] 1: Relaxed Heart Rate FHR Baseline Rate: 140 Monitor Mode: External US Variability: Moderate 6-25 bpm Accelerations: 10X10 Decelerations: None Category: Category I Pain Assessment Pain Scale: 0 Pain Presence: None/Denies Pain Type: N/A Pain Goal: 3 Membrane Status: Intact Datetime: 09/08/2018 15:43 EGA: 32.0 Datetime: 09/08/2018 15:33 Time of Arrival: 09/08/2018 15:17 EGA: 31.6 Arrived By: Ambulatory Arrived From: Home Chief Complaint: REPEAT NST/BPP FOR SIZE VS DATES DISCREPANCY. Movement: Present Contractions: Denies/Absent Rupture of Membranes: Denies Vaginal Bleeding: None Vaginal Discharge: Denies Recent Sexual Intercouse: Denies Abdominal Trauma: Not Applicable Patient Complaints: None Initial Plan: NST, BPP Datetime: 09/08/2018 15:30 Stage of : OB Triage Assessment Type: Triage Maternal Assessment Level of Consciousness: Keenly Alert, Responsive Headache: Denies Blurred Vision: No Respiratory Effort: Unlabored; Regular Rhythm; Equal Expansion Breath Sounds, Left: Clear and Equal Breath Sounds, Right: Clear and Equal Nausea/Vomiting: Denies RUQ Epigastric Pain: Denies Lower Extremities Edema: None Degree: None Upper Extremities Edema: None Degree: None Facial Edema: None Temperature Route: Axillary Fall Risk Assessment History of Falling: (0) No Secondary Diagnosis: (0) No Ambulatory Aid: (0) Bedrest/Nurse Assist IV Therapy: (0) No Gait: (0) Normal/Bedrest/Immobile Mental Status: (0) Oriented to Own Ability Fall Score: 0 Fall Risk Score Definition: No Risk: No action required Pain Assessment Pain Scale: 0 Pain Presence: None/Denies Pain Type: N/A Datetime: 09/06/2018 11:06 EGA: 31.4 Datetime: 09/06/2018 11:05 Fall Score: 0 Fall Risk Score Definition: No Risk: No action required Datetime: 09/04/2018 14:30 Fall Score: 0 Fall Risk Score Definition: No Risk: No action required Datetime: 09/04/2018 14:29 EGA: 31.2 Datetime: 09/01/2018 09:00 Fall Score: 0 Fall Risk Score Definition: No Risk: No action required Datetime: 09/01/2018 01:14 EGA: 30.5 Datetime: 08/31/2018 23:36 Fall Score: 0 Fall Risk Score Definition: No Risk: No action required
== END 2018-09-29 22:15 | disposition home or self-care (01) ==
LOC: OBT 17:15 → L-D 17:16 → OBT 22:15
PROVIDERS: ATTEND Obstetrics & Gynecology
DX: O62.9 Abnormality of forces of labor, unspecified (principal); O26.893 Other specified pregnancy related conditions, third trimester; R10.2 Pelvic and perineal pain; O99.113 Other diseases of the blood and blood-forming organs and certain disorders involving the immune mechanism complicating pregnancy, third trimester; D68.62 Lupus anticoagulant syndrome; O99.323 Drug use complicating pregnancy, third trimester; F12.90 Cannabis use, unspecified, uncomplicated; O09.299 Supervision of pregnancy with other poor reproductive or obstetric history, unspecified trimester; Z3A.37 37 weeks gestation of pregnancy
CPT/HCPCS: 76815; 76818; 81003; 81240; 83020; 83036; 83890; 85300; 85613; 86147; Z7500; G0463

== ENCOUNTER 2018-10-13 23:45 | Outpatient (CLI) | payer MEDICAID ==
[~2018-10-13] VITALS: Ht 167.6 cm; Wt 104.2 kg
[2018-10-14 00:41] VITALS: BP 102/61; PULSE 81; RESP 18
--- NOTE | 2018-10-14 02:47 | PN ---
Triage Information Date/Time October 14, 2018 Reason for visit: Uterine contractions Weeks of Gestation 37w 1d /Para 7/5 Diabetes: none Objective Vital Signs Date Temp Pulse Resp B/P (MAP) Pulse Ox O2 O2 Flow FiO2 Time Delivery Rate 10/14/18 98.2 81 18 102/61 Room Air 00:41 (75) Heart Rate: 130's Heart Rate Comments Accels to 160 BPM. No decels. Contractions: >10 Minutes Apart Exam 50%/2 cm/-2. Results/Medications Results 24 hrs Laboratory Tests Test 10/13/18 23:50 Urine Color YELLOW Urine Clarity SLIGHTLY CLOUDY A Urine pH 6.0 Urine Specific [place] 1.012 Urine Ketones TRACE A Urine Nitrite NEGATIVE Urine Bilirubin NEGATIVE Urine Urobilinogen NEGATIVE Urine Leukocyte Esterase 3+ H Urine Microscopic RBC 0 Urine Microscopic WBC 29 H Urine Squamous Epithelial Cells FEW Urine Calcium Oxalate Crystals MODERATE Urine Bacteria FEW A Urine Mucus MODERATE Urine Hemoglobin NEGATIVE Urine Glucose NEGATIVE Urine Total Protein NEGATIVE Urine Opiates Screen NEGATIVE Urine Barbiturates NEGATIVE Urine Amphetamines Screen NEGATIVE Urine Benzodiazepines Screen NEGATIVE Urine Cocaine Screen NEGATIVE Urine Cannabinoids NEGATIVE Imaging Results BPP 8/8 with an RAY of 13.8 cm. VTX. Posterior placenta. Disposition: Discharge Assessment/Plan A: IUP at 37w 1d. False labor. P: D/c home with labor instructions on when to return. ABIODUN IRAHETA MD Oct 14, 2018 02:47
--- NOTE | 2018-10-14 07:18 | TRIAGE ---
OB Triage Datetime Report Generated by CPN: 10/14/2018 07:18 Datetime: 10/14/2018 00:35 Time of Arrival: 10/13/2018 23:40 EGA: 37.0 Arrived By: Wheelchair Arrived From: Home Chief Complaint: A1 c/o ucs, FITZGERALD and discharge Movement: Present Contractions: Irregular Time Contractions Began: 10/13/2018 11:00 Contractions: q5 Rupture of Membranes: Unsure Vaginal Bleeding: None Vaginal Discharge: Present Recent Sexual Intercouse: Denies Abdominal Trauma: Not Applicable Patient Complaints: Contractions Additional Patient Complaints: Hx drug use x 10 yrs Time Provider Notified: 10/14/2018 00:30 Provider Notified: Dr Avila Initial Plan: EFM,UA,DRUG SCREEN, BPP Datetime: 09/29/2018 22:04 Stage of : OB Triage Labor Evaluation Monitor Mode: External Quality: Mild Pattern: Normal: <= 5 Contractions in 10 Minutes Resting Tone [place]: Relaxed Heart Rate FHR Baseline Rate: 135 Monitor Mode: External US FHR Baseline Changes: No Baseline Change Variability: Moderate 6-25 bpm Accelerations: 15X15 Decelerations: None Category: Category I Datetime: 09/29/2018 20:41 Stage of : OB Triage Labor Evaluation Monitor Mode: External Quality: Mild Pattern: Normal: <= 5 Contractions in 10 Minutes Resting Tone [place]: Relaxed Heart Rate FHR Baseline Rate: 130 Monitor Mode: External US FHR Baseline Changes: No Baseline Change Variability: Moderate 6-25 bpm Accelerations: 15X15 Decelerations: None Category: Category I Datetime: 09/29/2018 19:51 Stage of : OB Triage Labor Evaluation Monitor Mode: External Quality: Mild Resting Tone [place]: Relaxed Heart Rate FHR Baseline Rate: 130 Monitor Mode: External US Datetime: 09/29/2018 19:24 Stage of : OB Triage Labor Evaluation Monitor Mode: External Quality: Mild Pattern: Normal: <= 5 Contractions in 10 Minutes Resting Tone [place]: Relaxed Heart Rate FHR Baseline Rate: 135 Monitor Mode: External US FHR Baseline Changes: No Baseline Change Variability: Moderate 6-25 bpm Accelerations: 15X15 Decelerations: None Category: Category I Pain Assessment Pain Scale: 0 Pain Presence: None/Denies Pain Type: N/A Datetime: 09/29/2018 19:00 EGA: 35.0 Datetime: 09/08/2018 15:43 EGA: 32.0 Datetime: 09/08/2018 15:33 EGA: 31.6 Datetime: 09/08/2018 15:30 Fall Risk Assessment Fall Score: 0 Fall Risk Score Definition: No Risk: No action required Datetime: 09/06/2018 11:06 EGA: 31.4 Datetime: 09/06/2018 11:05 Fall Risk Assessment Fall Score: 0 Fall Risk Score Definition: No Risk: No action required Datetime: 09/04/2018 14:30 Fall Risk Assessment Fall Score: 0 Fall Risk Score Definition: No Risk: No action required Datetime: 09/04/2018 14:29 EGA: 31.2 Datetime: 09/01/2018 09:00 Fall Risk Assessment Fall Score: 0 Fall Risk Score Definition: No Risk: No action required Datetime: 09/01/2018 01:14 EGA: 30.5 Datetime: 08/31/2018 23:36 Fall Risk Assessment Fall Score: 0 Fall Risk Score Definition: No Risk: No action required
== END 2018-10-14 02:58 | disposition home or self-care (01) ==
LOC: L-D 23:45 → OBT 23:45
PROVIDERS: ATTEND Obstetrics & Gynecology
DX: O62.9 Abnormality of forces of labor, unspecified (principal); Z3A.37 37 weeks gestation of pregnancy
CPT/HCPCS: 76818; 80307; 81001; 87086; Z7500; G0463

== ENCOUNTER 2018-10-29 08:00 | Inpatient (IN) | payer MEDICAID ==
[~2018-10-29] VITALS: Ht 167.6 cm; Wt 103.1 kg
[2018-10-29 11:00] VITALS: Ht 167.6 cm; Wt 103.1 kg
[2018-10-29 11:01] VITALS: BP 109/66; PULSE 99; RESP 20
[2018-10-29] MEDS ORDERED: IBUPROFEN 600 MG TAB PO PRN (11:30)
[2018-10-29] MEDS ORDERED: BUTORPHANOL 2 MG INJ IV PRN (11:30)
[2018-10-29] MEDS ORDERED: OXYTOCIN 30 UNITS/LR 500 ML IV PRN (11:30)
[2018-10-29] MEDS ORDERED: CARBOPROST 250 MCG INJ IM PRN (11:30)
[2018-10-29] MEDS ORDERED: METHYLERGONOVINE 0.2 MG INJ IM PRN (11:30)
[2018-10-29] MEDS ORDERED: MISOPROSTOL 200 MCG TAB PR PRN (11:30)
[2018-10-29] MEDS ORDERED: OXYCODONE/ASPIRIN (4.88/325) TAB PO PRN (11:30)
[2018-10-29] MEDS ORDERED: OXYTOCIN 30 UNITS/LR 500 ML IV SCH ×3 (11:30→13:00)
[2018-10-29] MEDS ORDERED: LIDOCAINE 1% (MPF) 30 ML INJ INJ PRN (11:30)
[2018-10-29] MEDS: LACTATED RINGER'S 1,000 ML IV SCH ×3 (11:56→17:42)
[2018-10-29] MEDS ORDERED: AMPICILLIN 2 GM/NS (PMX) 100 ML IVPB ONE (12:30)
[2018-10-29] MEDS: AMPICILLIN 1 GM/NS (PMX) 50 ML IVPB SCH ×2 (16:35→21:00)
--- NOTE | 2018-10-29 16:55 | PREAC ---
Date/Time of Note Date/Time of Note DATE: 10/29/18 TIME: 16:54 Anesthesia Eval and Record Evaluation Time Pre-Procedure Interview DATE: 10/29/18 TIME: 16:54 Age 28 Sex female NPO: 8 hrs Preoperative diagnosis Planned procedure labor epidural Past Medical History Past Medical History: Includes GI: Obesity Surgery & Anesthesia Issues No known issue Meds Anticoagulation: No Beta Cole within 24 hr: No Reason Beta Cole not given: Pt. not on B-Cole Reported Medications Ferrous Gluconate (Iron) 256 Mg Tablet, 256 MG PO DAILY, TAB 09/08/18 Vit No.78/Iron/FA (Prenatabs FA Tablet) 1 Each Tablet, 1 EACH PO DAILY, TAB 04/03/17 Current Medications Lactated Ringer's 1,000 ml @ 125 mls/hr Q8H IV Last administered on 10/29/18at 16:50; Admin Dose 125 MLS/HR; Start 10/29/18 at 11:02 Butorphanol Tartrate (Stadol) 2 mg Q2H PRN IV .PAIN SCALE 6-10; Start 10/29/18 at 11:30 Lidocaine (Xylocaine 1% (Mpf)) 30 ml ONCE PRN INJ .EPISIOTOMY; Start 10/29/18 at 11:30 Oxytocin/Lactated Ringer's 500 ml @ 500 mls/hr ONCE POST IV ; Start 10/29/18 at 11:30 Oxytocin/Lactated Ringer's 500 ml @ 125 mls/hr POST IV ; Start 10/29/18 at 11:30 Ibuprofen (Motrin) 600 mg ONCE PRN PO .PAIN 1-5; Start 10/29/18 at 11:30 Oxycodone/Aspirin (Percodan) 2 tab ONCE PRN PO .PAIN 6-10; Start 10/29/18 at 11:30 Oxytocin/Lactated Ringer's 500 ml @ 0 mls/hr ONCE PRN IV .VAGINAL BLEEDING; S tart 10/29/18 at 11:30 Methylergonovine Maleate (Methergine) 0.2 mg ONCE PRN IM .VAGINAL BLEEDING; St art 10/29/18 at 11:30 Carboprost Tromethamine (Hemabate) 250 mcg ONCE PRN IM .VAGINAL BLEEDING; Start 10/29/18 at 11:30 Misoprostol (Cytotec) 1,000 mcg ONCE PRN MS .VAGINAL BLEEDING; Start 10/29/18 at 11:30 Ampicillin 50 ml @ 100 mls/hr Q4 IVPB Last administered on 10/29/18at 16:35; Admin Dose 100 MLS/HR; Start 10/29/18 at 16:30 Oxytocin/Lactated Ringer's 500 ml @ 0 mls/hr Q0M IV Last administered on 10/29/18at 13:02; Admin Dose 1 MLS/HR; Start 10/29/18 at 13:00 Mineral Oil (Muri-Lube) 20 ml PRN PRN TOP LUBRICANT; Start 10/29/18 at 17:00; Status UNV Meds reviewed: Yes Allergies Coded Allergies: No Known Drug Allergy (Verified Allergy, Unknown, 10/14/18) Allergies Reviewed: Yes Labs/Studies Labs Reviewed: Reviewed by anesthesiologist Result Diagram: 10/29/18 1123 Laboratory Tests 10/29/18 11:23 Blood Bank Test 10/29/18 11:23 Antibody Screen NEGATIVE Blood Type A POSITIVE Rh Immune Globulin Candidate NO test: Positive Pre-procedure Exam Last vitals Vital Signs Date Temp Pulse Resp B/P (MAP) Pulse Ox O2 O2 Flow FiO2 Time Delivery Rate 10/29/18 97.7 99 20 109/66 Room Air 11:01 (80) Airway: Adequate mouth opening, Adequate thyromental dist Mallampati: Mallampati II Teeth: Normal Lung: Normal Heart: Normal ASA Physical Status ASA physical status: 2 Emergency: None Planned Anesthetic Neuraxial: Epidural Pre-operative Attestations Prior to commencing anesthesia and surgery, the patient was re-evaluated, there was verification of: *The patient's identity *The results of appropriate recent lab work and preoperative vital signs *The above evaluation not changing prior to induction *Anesthetic plan, risk benefits, alternative and complications discussed with patient/family; questions answered; patient/family understands, accepts and wishes to proceed. LEONIDAS RAMOS Oct 29, 2018 16:55
[2018-10-29] MEDS ORDERED: FENTAnyl 2MCG/ML-ROPIV 0.2% 100 ML BAG EPI SCH (17:00)
[2018-10-29] MEDS ORDERED: DIPHENHYDRAMINE 50 MG INJ IV PRN (17:00)
[2018-10-29] MEDS ORDERED: HYDROmorphONE 0.5 MG/0.5 ML SYG IV PRN ×2 (17:00)
[2018-10-29] MEDS ORDERED: KETOROLAC 30 MG INJ IV PRN (17:00)
[2018-10-29] MEDS ORDERED: NALOXONE (0.4 MG/ML) INJ IV PRN (17:00)
[2018-10-29] MEDS ORDERED: MINERAL OIL LIGHT 10 ML VIAL TOP PRN (17:00)
--- NOTE | 2018-10-29 23:01 | PAC ---
Date/Time of Note Date/Time of Note DATE: 10/29/18 TIME: 23:01 Post-Anesthesia Notes Post-Anesthesia Note Last documented vital signs Vital Signs Date Temp Pulse Resp B/P (MAP) Pulse Ox O2 O2 Flow FiO2 Time Delivery Rate 10/29/18 97.7 99 20 109/66 Room Air 11:01 (80) Activity: WNL Respiratory function: WNL Cardiovascular function: WNL Mental status: Baseline Pain reasonably controlled: Yes Hydration appropriate: Yes Nausea/Vomiting absent: Yes LEONIDAS RAMOS Oct 29, 2018 23:01
--- NOTE | 2018-10-29 23:41 | HP ---
Date/Time of Note Date/Time of Note DATE: 10/29/18 TIME: 23:41 OB - History Hx of Present Free Text/Dictation 28 years old -0-0-5 with single intrauterine at 39 weeks and 2 days with a BRENNEN of 11/03/2018 admitted for induction of labor due to history of demise at 28 weeks. She states good movement. She denies nausea, vomiting, shortness of breath, chest pain, headache, visual changes, vaginal bleeding or LOF. Chief Complaint: Admitted for induction of labor Estimated Due Date: Nov 03, 2018 : 6 Para: 5 Spontaneous : 0 Therapeutic : 0 Care: Good Care Ultrasounds: Normal mid trimester US Obstetrical Complications: None Medical Complications: None Past Family/Social History * Past Medical, Surgical, Family and Obstetric Histories reviewed from chart. Blood Type: A+ Rubella: immune RPR/VDRL: Negative GBS Status: Positive HBsAG: Negative OB Admission Exam Vital Signs Vital Signs Vital Signs Date Temp Pulse Resp B/P (MAP) Pulse Ox O2 O2 Flow FiO2 Time Delivery Rate 10/29/18 97.7 99 20 109/66 Room Air 11:01 (80) Physical Exam HEENT: WNL Heart: Rhythm Normal Lungs: Clear Abdomen: WNL Extremities: Normal Cervical Dilatation: 2cm Effacement: 50% Station: -3 Membranes: Intact Heart Rate: 140's Accelerations: Accelerations Present Decelerations: No Decelerations Varibility: Moderate Contractions on Admission: 6-10 Minutes Apart Intensity: Mild Last 72 hours Lab Results CBC & BMP 10/29/18 11:23 OB Assessment/Plan Other plan: 28 years old -0-0-5 with single intrauterine at 39 weeks and 2 days -FHR: Category I -Continuous EFM, toco -CBC, blood type and screen -Analgesia options with R/B/A discussed in detail with patient -Epidural per patient request -Please see the orders -A+/Rubella: Immune -GBS: Positive, ampicillin for GBS prophylaxis ordered Admission, procedures, expectations, risks and possible complications have been discussed in detail with the patient. Risk of vaginal delivery including but not limited to bleeding, infection, cervical laceration, placental retention, injury to fetus, blood transfusion, blood transfusion related infection, risk of anesthesia, adhesion, cervical laceration, episiotomy/laceration, possible delivery with risk of bleeding, infection, injury to other organs (bowel, bladder, ureter, vessels, nerves), injury to fetus, blood transfusion, blood transfusion related infection, risk of anesthesia, scar and hernia forma tion, needs for future , removal of uterus or any other indicated surgery discussed with the patient. She expressed understanding and repeats the risks. All of her questions were answered. She signed the informed consent. PHYSICIAN'S VERIFICATION OF INFORMED CONSENT The patient was counseled regarding the procedure, its indications, risks, potential complications and alternatives and any questions were answered. Consent was obtained. PLANNED PROCEDURE/TREATMENT: Vaginal delivery, episiotomy, repair of laceration possible delivery JOJO PAZ Oct 29, 2018 23:41
--- NOTE | 2018-10-30 00:47 | LDN ---
Date/Time of Note Date/Time of Note DATE: 10/30/18 TIME: 00:44 Delivery Summary 28 years old 6 para 5-0-0-5 with single intrauterine at 39 weeks and 3 days delivered a viable female over first-degree left anterior labia minora laceration. Nose and mouth suctioned. There was a tight nuchal cord x1 which clamp and cut. Rest of body delivered. Baby given to the nurse. Placenta delivered spontaneously and intact with three-vessel cord. Laceration repaired with 4-0 chromic. Time of delivery 00 21 Weight 7 pounds 9 ounces 8 at 1 minutes and 9 at 5 minutes EBL 100 mL Weeks of Gestation 39 weeks and 3 days Placenta Delivered: Spontaneously Meconium: none Episiotomy: No Estimated blood loss: 100 Sponge & Needle done & correct: Yes All needle counts correct: Yes Any foreign bodies felt in the: No Infant Delivery Information Sex Infant Sex: female Apgars 1 Minute: 8 5 Minute: 9 10 Minute: 10 Suctioning Nose & mouth suctioned at joaquin: Yes Umbilical Cord Umbilical cord with: 3 Vessels Cord presentations: nuchal cord Nuchal cord present X: 1 Cord Blood was obtained: Yes Mother & Baby Disposition Disposition Mom & Baby to Maternity; Good: Yes JOJO PAZ Oct 30, 2018 00:47
[2018-10-30] MEDS: AMPICILLIN 1 GM/NS (PMX) 50 ML IVPB SCH (01:00)
[2018-10-30 02:00] VITALS: BP 107/47; PULSE 50; RESP 19
[2018-10-30] MEDS: DEXTROSE 5%-LR 1,000 ML IV SCH ×2 (03:01→11:01)
[2018-10-30] MEDS ORDERED: WITCH HAZEL/GLYCERIN PAD PR PRN (03:30)
[2018-10-30] MEDS ORDERED: DIPHENHYDRAMINE 50 MG INJ IV PRN (03:30)
[2018-10-30] MEDS ORDERED: MISOPROSTOL 200 MCG TAB PR PRN (03:30)
[2018-10-30] MEDS ORDERED: ONDANSETRON 4 MG INJ IV PRN (03:30)
[2018-10-30] MEDS ORDERED: BENZOCAINE 20% 56 ML SPRAY TOP PRN (03:30)
[2018-10-30] MEDS ORDERED: DIBUCAINE 1% 30 GM OINT TOP PRN (03:30)
[2018-10-30] MEDS ORDERED: CARBOPROST 250 MCG INJ IM PRN (03:30)
[2018-10-30] MEDS ORDERED: OXYCODONE/ASPIRIN (4.88/325) TAB PO PRN (03:30)
[2018-10-30] MEDS ORDERED: METHYLERGONOVINE 0.2 MG INJ IM PRN (03:30)
[2018-10-30] MEDS ORDERED: ACETAMINOPHEN 325 MG TAB PO PRN (03:30)
[2018-10-30] MEDS ORDERED: OXYTOCIN 30 UNITS/LR 500 ML IV PRN (03:30)
[2018-10-30] MEDS ORDERED: ZOLPIDEM 5 MG TAB PO PRN (03:30)
[2018-10-30 04:00] VITALS: BP 112/57; PULSE 77; RESP 19
[2018-10-30] MEDS: LANOLIN HPA 1 PKT TOP PRN (06:15)
[2018-10-30] MEDS: IBUPROFEN 600 MG TAB PO SCH ×4 (06:15→23:45)
[2018-10-30] MEDS: LACTATED RINGER'S 1,000 ML IV* SCH ×2 (06:16→11:01)
[2018-10-30 08:30] VITALS: BP 90/53; PULSE 55; RESP 18
[2018-10-30 16:00] VITALS: BP 103/53; PULSE 54; RESP 18
[2018-10-30 19:30] VITALS: BP 90/45; PULSE 52; RESP 18
--- NOTE | 2018-10-31 02:16 | DELSUM ---
Delivery Summary A-C Datetime Report Generated by CPN: 10/31/2018 02:16 DELIVERY PERSONNEL Gm Video: Rondon, Carolyne MATERNAL INFORMATION Delivery Anesthesia: Epidural Medications in Delivery: 30 UNITS PITOCIN Delivery QBL (ml): 100 Placenta Cultured: No Maternal Complications: None LABOR SUMMARY EDC: 11/03/2018 00:00 No. Babies in Womb: 1 Attempted: No Labor Anesthesia: Epidural LABOR INFORMATION Reason for Induction: Other Reason for Induction- Other: HX OF PLACENTA PREVIA Onset of Labor: 10/29/2018 10:50 Complete Dilatation: 10/30/2018 00:10 Oxytocin: Induction Group B Beta Strep: Positive Antibiotics # of Doses: 3 Antibiotics Time of Last Dose: 10/29/2018 21:00 Steroids Given: None Reason Steroids Not Administered: Not Applicable MEMBRANES Membranes Rupture Method: Artificial Rupture of Membranes: 10/29/2018 21:19 Length of Rupture (hr): 3.03 Amniotic Fluid Color: Clear Amniotic Fluid Amount: Moderate Amniotic Fluid Odor: None STAGES OF LABOR Stage 1 hr: 13 Stage 1 min: 20 Stage 2 hr: 0 Stage 2 min: 11 Stage 3 hr: 0 Stage 3 min: 4 Total Time in Labor hr: 13 Total Time in Labor min: 35 VAGINAL DELIVERY Laceration Extension: First Degree Laceration Type: Perineal Laceration Repair: Yes Initial Vag Sponge Count: 10 Final Vag Sponge Count: 10 Initial Vag Sharps Count: 1 Final Vag Sharps Count: 2 Sponge Count Correct: Yes; Vaginal Sweep Performed Sharps Count Correct: Yes BABY A INFORMATION Delivery Date/Time: 10/30/2018 00:21 Method of Delivery: Vaginal Born in Route : No : N/A Forceps: N/A Vacuum Extraction: N/A Shoulder Dystocia : N/A SHOULDER DYSTOCIA BABY A Infant Delivery Date/Time: 10/30/2018 00:21 PRESENTATION/POSITION BABY A Presentation: Cephalic Cephalic Presentation: Vertex Breech Presentation: N/A PLACENTA INFORMATION BABY A Placenta Delivery Time : 10/30/2018 00:25 Placenta Method of Delivery: Expressed Placenta Status: Delivered SCORES BABY A Heart Rate 1 min: >100 bpm Resp Effort 1 min: Good Cry Reflex Irritability 1 min: Cough/Sneeze/Pulls Away Muscle Tone 1 min: Active Motion Color 1 min: Blue/Pale Resuscitation Effort 1 min: Tactile Stimulation SCORE 1 MIN: 8 Heart Rate 5 min: >100 bpm Resp Effort 5 min: Good Cry Reflex Irritability 5 min: Cough/Sneeze/Pulls Away Muscle Tone 5 min: Active Motion Color 5 min: Body [place], Extremit Blue Resuscitation Effort 5 min: Tactile Stimulation SCORE 5 MIN: 9 INFORMATION BABY A Gestational Age at Delivery: 39.3 Gestational Status: Full Term- 39- 40.6 Weeks Infant Outcome : Liveborn, with signs of life Infant Condition : Stable Infant Sex: Female IDENTIFICATION/MEDS BABY A ID Band Number: [id number] ID Band Location: Right Leg; Left Arm Sensor Applied: Yes Sensor Number: [id number] Sensor Location : Cord Clamp Vitamin K Given : Not Given Erythromycin Given: Not Given WEIGHT/LENGTH BABY A Birthweight (gm): 3420 Infant Weight (lb): 7 Infant Weight (oz): 9 Length (in): 19.00 Length (cm): 48.26 CORD INFORMATION BABY A No. Cord Vessels: 3 Nuchal Cord : Around Neck x1, Tight Cord Blood Taken: Yes Infant Suction: Mouth; Nose ASSESSMENT BABY A Infant Complications: None Physical Findings at Delivery: Within Normal Limits Respirations: Appears Normal Mysql Database Administrator/ALS Called : No Care By: BRITT Transferred To: Remains with Mother
[2018-10-31 04:15] VITALS: BP 96/50; PULSE 52; RESP 18
[2018-10-31] MEDS: IBUPROFEN 600 MG TAB PO SCH ×3 (05:38→18:44)
[2018-10-31 08:30] VITALS: BP 106/59; PULSE 56; RESP 16
[2018-10-31] MEDS: SENNA/DOCUSATE NA (8.6MG/50MG) TAB PO PRN (09:40)
[2018-10-31 16:30] VITALS: BP 119/66; PULSE 53; RESP 18
[2018-10-31] MEDS: LANOLIN HPA 1 PKT TOP PRN (17:03)
[2018-10-31 21:00] VITALS: BP 99/54; PULSE 50; RESP 18
--- NOTE | 2018-10-31 22:08 | QN ---
Documentation Comment no c/o vss HR 50's fundus firm lochia min calf neg for tendernes A s/p #1' P d/s home in am LAUREEN BENÍTEZ MD Oct 31, 2018 22:08
[2018-11-01] MEDS: IBUPROFEN 600 MG TAB PO SCH ×3 (00:31→12:03)
[2018-11-01 04:15] VITALS: BP 93/47; PULSE 71; RESP 18
[2018-11-01 08:43] VITALS: BP 104/56; PULSE 63; RESP 14
[2018-11-01] MEDS ORDERED: MEASLES,MUMPS,RUBELLA VACCINE INJ SC* ONE (09:00)
[2018-11-01] MEDS ORDERED: DIPHTH/TET/ACEL PERTUSS (ADULT) 0.5 ML VIAL IM* ONE (09:00)
[2018-11-01] MEDS: SENNA/DOCUSATE NA (8.6MG/50MG) TAB PO PRN (09:51)
[2018-11-01 16:10] VITALS: BP 106/58; PULSE 61; RESP 17
--- NOTE | 2018-11-01 19:49 | DS ---
Date/Time of Note Date/Time of Note DATE: 11/01/18 TIME: 19:47 Obstetrical Discharge Record Final Diagnosis Final Diagnosis: Term delivered Other Final Diagnosis day #2 Status post Patient stable and afebrile Vital signs stable VS - Last 72 Hours, by Label Date Temp Pulse Resp B/P (MAP) Pulse Ox O2 O2 Flow FiO2 Time Delivery Rate 11/01/18 98.6 61 17 106/58 Room Air 16:10 (74) 11/01/18 98.1 63 14 104/56 Room Air 08:43 (72) 11/01/18 98.5 71 18 93/47 (62) Room Air 04:15 10/31/18 98.0 50 18 99/54 (69) Room Air 21:00 10/31/18 98.3 53 18 119/66 Room Air 16:30 (83) 10/31/18 98.2 56 16 106/59 Room Air 08:30 (75) 10/31/18 98.0 52 18 96/50 (65) Room Air 04:15 10/30/18 98.5 52 18 90/45 (60) Room Air 19:30 10/30/18 98.1 54 18 103/53 Room Air 16:00 (70) 10/30/18 98.5 55 18 90/53 (65) Room Air 08:30 10/30/18 98.2 77 19 112/57 04:00 (75) 10/30/18 98.3 50 19 107/47 Room Air 02:00 (67) Hematology - 72 Hrs Test 10/31/18 04:27 Hematocrit 29.4 % (37.0-47.0) L Hemoglobin 9.4 g/dl (12.0-16.0) L Mean Corpuscular Hemoglobin 27.0 pg (29.0-33.0) L Mean Corpuscular Hemoglobin Concent 32.0 g/dl (32.0-37.0) Mean Corpuscular Volume 84.5 fl (82.0-101.0) Mean Platelet Volume 12.9 fl (7.4-10.4) H Platelet Count 190 10^3/UL (140-415) Red Blood Count 3.48 10^6/ul (4.20-5.40) L Red Cell Distribution Width 13.1 % (11.5-14.5) White Blood Count 7.0 10^3/ul (4.8-10.8) Abdomen soft, fundus firm Perineum intact Extremities nontender Assessment and plan Patient was seen by social service for consultation for depression Patient stable and doing well Plan to discharge home Patient instructed to follow-up with [facility] in 2 and 6 weeks Vaginal Delivery Obstetrical Delivery: Spontaneous Condition on Discharge Physical Assessment Last Vitals: VS - Last 72 Hours, by Label Date Temp Pulse Resp B/P (MAP) Pulse Ox O2 O2 Flow FiO2 Time Delivery Rate 11/01/18 98.6 61 17 106/58 Room Air 16:10 (74) 11/01/18 98.1 63 14 104/56 Room Air 08:43 (72) 11/01/18 98.5 71 18 93/47 (62) Room Air 04:15 10/31/18 98.0 50 18 99/54 (69) Room Air 21:00 10/31/18 98.3 53 18 119/66 Room Air 16:30 (83) 10/31/18 98.2 56 16 106/59 Room Air 08:30 (75) 10/31/18 98.0 52 18 96/50 (65) Room Air 04:15 10/30/18 98.5 52 18 90/45 (60) Room Air 19:30 10/30/18 98.1 54 18 103/53 Room Air 16:00 (70) 10/30/18 98.5 55 18 90/53 (65) Room Air 08:30 10/30/18 98.2 77 19 112/57 04:00 (75) 10/30/18 98.3 50 19 107/47 Room Air 02:00 (67) Voiding: Yes Bowel Movement: Yes Breast: Soft, non-tender Fundus: Firm Calf Tenderness: No Patient Condition: Good Copies To: CC: JOJO PAZ ; SIMEON PELLETIER MD Nov 01, 2018 19:49
== END 2018-11-01 16:30 | disposition home or self-care (01) | DRG 807 ==
LOC: L-D 10:11 → MS1 10-30 02:15
PROVIDERS: ADMIT Obstetrics & Gynecology; ATTEND Obstetrics & Gynecology
PROC: 3E033VJ Introduction of Other Hormone into Peripheral Vein, Percutaneous Approach (ICD-10-PCS; 2018-10-29)
PROC: 10E0XZZ Delivery of Products of Conception, External Approach (ICD-10-PCS; principal; 2018-10-30)
PROC: 0HQ9XZZ Repair Perineum Skin, External Approach (ICD-10-PCS; 2018-10-30)
DX: O99.824 Streptococcus B carrier state complicating childbirth (principal); O70.0 First degree perineal laceration during delivery; O69.1XX0 Labor and delivery complicated by cord around neck, with compression, not applicable or unspecified; Z3A.39 39 weeks gestation of pregnancy; Z37.0 Single live birth
CPT/HCPCS: 62322; 76815; 85025; 85610; 85730; 86592; 86850; 86900; 86901; 87340; 90715; J0290; J2590; J3010; J7120; J7121